=== PATIENT | male | born 1995 | race Two or more races ===

== ENCOUNTER 2018-02-17 16:29 | Emergency (ER) | payer SELFPAY ==
[2018-02-17] MEDS ORDERED: DIPHENHYDRAMINE HCL 50 MG/ML VIAL IV ONE (16:41)
[2018-02-17] MEDS ORDERED: METOCLOPRAMIDE HCL INJ/PF 10 MG/2 ML SDV IV ONE (16:41)
[2018-02-17] MEDS ORDERED: NORMAL SALINE 1000 ML 1,000 ML IV ONE (16:41)
--- NOTE | 2018-02-17 16:43 | ER Document Report ---
ED Medical Screen (RME) - General Chief Complaint: Headache Stated Complaint: HEADACHE Time Seen by Provider: 02/17/18 16:40 Notes: RME DISCLOSURE I have seen this patient as part of a Rapid Medical Evaluation and, if applicable, placed any initially appropriate orders. The patient will be seen and fully evaluated, including a full history and physical exam, by a provider ( in Main ED or Fast Track) when a room becomes available. 22-year-old male here with complaints of headache to the top of his head ongoing for the past 2 days. States that the headache started gradually and has been intermittent since then. Worse with moving his head but not worse with light and sound. No neck pain fevers nausea vomiting. Reports feeling very weak and dizzy with the headache. No prior history of headaches. Of note , he went to the clinic this afternoon and they checked his blood sugar and he was told it was normal. TRAVEL OUTSIDE OF THE [place] IN LAST 30 DAYS: No - Related Data Allergies/Adverse Reactions: No Known Allergies Allergy (Unverified 02/17/18 16:33) Physical Exam - Vital signs Vitals: Temp Pulse Resp BP Pulse Ox 97.5 F 95 16 145/72 H 100 02/17/18 16:33 02/17/18 16:33 02/17/18 16:33 02/17/18 16:33 02/17/18 16:33 Course - Vital Signs Vital signs: Temp Pulse Resp BP Pulse Ox 97.5 F 95 16 145/72 H 100 02/17/18 16:33 02/17/18 16:33 02/17/18 16:33 02/17/18 16:33 02/17/18 16:33
[2018-02-17 17:33] LABS: ABSOLUTE MONOCYTES (AUTO) 0.4 10^3/uL (0.1-1.4); ABSOLUTE NEUT (AUTO) 5.3 10^3/uL (1.7-8.2); BASOPHILS % (AUTO) 0.3 % (0-2); EOSINOPHILS % (AUTO) 0.1 % (0-6); HEMATOCRIT 44.7 % (37.9-51.0); HEMOGLOBIN 15.2 g/dL (13.5-17.0); LYMPHOCYTES % (AUTO) 15.1 % (13-45); MEAN CORPUSCULAR HEMOGLOBIN 30.5 pg (27.0-33.4); MEAN CORPUSCULAR VOLUME 90 fl (80-97); MONOCYTES % (AUTO) 6.3 % (3-13); PLATELET COUNT 164 10^3/uL (150-450); RED BLOOD COUNT 4.98 10^6/uL (4.35-5.55); RED CELL DISTRIBUTION WIDTH 12.3 % (11.5-14.0); SEGMENTED NEUTROPHILS % (AUTO) 78.2 % (42-78); TOTAL CELLS COUNTED % (AUTO) 100 %; WHITE BLOOD COUNT 6.8 10^3/uL (4.0-10.5)
[2018-02-17] MEDS ORDERED: KETOROLAC TROMETHAMINE 60 MG/2 ML SDV IV ONE (17:33)
--- NOTE | 2018-02-17 17:34 | ER Document Report ---
ED General - General Mode of Arrival: Ambulatory Information source: Patient TRAVEL OUTSIDE OF THE [place] IN LAST 30 DAYS: No <ERNIE HOFF - Last Filed: 02/17/18 19:07> <DIONY MALONEY - Last Filed: 02/17/18 23:20> - General Chief Complaint: Headache Stated Complaint: HEADACHE Time Seen by Provider: 02/17/18 16:40 Notes: Patient is a 22-year-old male presenting to the emergency department complaining of multiple symptoms including headache, weakness, lightheadedness, and shakiness onset 2 days ago. Patient states that 2 days ago he was laying upside down, texting and he felt like all the blood rushed to his head. He states that his headache has been intermittent until this morning when it became constant. He states the pain is at the top of his head that radiates unto the sides of his head when he turns from side to side. Patient states he brought Aspirin today but it did not help alleviate his symptoms. Patient also states that every time he stands up he feels lightheaded stating he feels like he is going to have a syncopal episode. Patient denies numbness, tingling sensations, blurry vision, difficulty swallowing, neck pain, chest pain, nausea , vomiting, trouble breathing, or fevers. (ERNIE HOFF) - Related Data Allergies/Adverse Reactions: No Known Allergies Allergy (Unverified 02/17/18 16:33) Past Medical History - General Information source: Patient - Social History Smoking Status: Never Smoker Chew tobacco use (# tins/day): No Frequency of alcohol use: None Drug Abuse: None Patient has suicidal ideation: No Patient has homicidal ideation: No <ERNIE HOFF - Last Filed: 02/17/18 19:07> - Social History Family History: None <DIONY MALONEY - Last Filed: 02/17/18 23:20> Review of Systems - Review of Systems Constitutional: No symptoms reported EENT: No symptoms reported Cardiovascular: See HPI, Dizziness, Lightheaded Respiratory: No symptoms reported Gastrointestinal: No symptoms reported Genitourinary: No symptoms reported Male Genitourinary: No symptoms reported Musculoskeletal: No symptoms reported Skin: No symptoms reported Hematologic/Lymphatic: No symptoms reported Neurological/Psychological: No symptoms reported -: Yes All other systems reviewed and negative <ERNIE HOFF - Last Filed: 02/17/18 19:07> Physical Exam <ERNIE HOFF - Last Filed: 02/17/18 19:07> <DIONY MALONEY - Last Filed: 02/17/18 23:20> - Vital signs Vitals: Temp Pulse Resp BP Pulse Ox 97.5 F 97 16 145/72 H 100 02/17/18 16:32 02/17/18 16:32 02/17/18 16:32 02/17/18 16:32 02/17/18 16:32 - Notes Notes: GENERAL: Alert, interacts well. No acute distress. HEAD: Normocephalic, atraumatic. EYES: Pupils equal, round, and reactive to light. Extraocular movements intact. ENT: Oral mucosa moist, tongue midline. Nares patent, no nasal septal hematoma, TM's intacts. NECK: Full range of motion. Supple. Trachea midline. LUNGS: Clear to auscultation bilaterally, no wheezes, rales, or rhonchi. No respiratory distress. HEART: Regular rate and rhythm. No murmurs, gallops, or rubs. ABDOMEN: Soft, non-tender. Non-distended. Bowel sounds present in all 4 quadrants. EXTREMITIES: Moves all 4 extremities spontaneously. No edema, radial and dorsalis pedis pulses 2/4 bilaterally. No cyanosis. NEUROLOGICAL: Alert and oriented x3. Normal speech. Cranial nerves II through XII grossly intact. Biceps and patellar DTRs 2+ bilaterally. Finger to nose testing intact. Sensations intact. Sinuses tender to percussion. PSYCH: Normal affect, normal mood. SKIN: Warm, dry, normal turgor. No rashes or lesions noted. (ERNIE HOFF) Course - Laboratory Result Diagrams: 02/17/18 17:03 02/17/18 17:03 <ERNIE HOFF - Last Filed: 02/17/18 19:07> - Laboratory Result Diagrams: 02/17/18 17:03 02/17/18 17:03 <DIONY MALONEY - Last Filed: 02/17/18 23:20> - Re-evaluation Re-evalutation: 02/17/18 19:21 CBC unremarkable, CMP has slight low potassium at 3.4 otherwise unremarkable, CT scan of the head does not show any acute process. Patient is neurologically intact, and headache has been going on for 2 days and waxes and wanes, not consistent with subarachnoid hemorrhage or meningitis. Patient has been treated with Toradol, Compazine and Benadryl. Patient will be discharged to home. Patient's headache is improved, he will follow-up with neurology as an outpatient if he continues to have daily headaches. (DIONY MALONEY) - Vital Signs Vital signs: Temp Pulse Resp BP Pulse Ox 99.2 F 73 16 125/65 100 02/17/18 20:03 02/17/18 20:03 02/17/18 16:33 02/17/18 20:03 02/17/18 20:03 - Laboratory Laboratory results interpreted by me: 02/17/18 02/17/18 17:03 17:03 Seg Neutrophils % 78.2 H Potassium 3.4 L BUN 4 L Glucose 118 H Discharge <ERNIE HOFF - Last Filed: 02/17/18 19:07> <DIONY MALONEY - Last Filed: 02/17/18 23:20> - Discharge Clinical Impression: Elevated blood pressure reading Headache Qualifiers: Headache type: unspecified Headache chronicity pattern: acute headache Intractability: not intractable Qualified Code(s): R51 - Headache Condition: Stable Disposition: HOME, SELF-CARE Additional Instructions: Today we did not see any signs of infection, stroke or bleeding in your brain. You should slowly decrease the amount of caffeine that you drink and stop using energy shots. We are going to discharge you to home. If you continue to have regular headaches you should follow-up with a neurologist. Referrals: VALENTE LIRA MD [NO LOCAL MD] - Follow up in 1 week Scribe Attestation: 02/17/18 23:20 I personally performed the services described in the documentation, reviewed and edited the documentation which was dictated to the scribe in my presence, and it accurately records my words and actions. (DIONY MALONEY) Scribe Documentation - Scribe Written by Marco:: Marco Smiley, 02/17/2018 18:25 acting as scribe for :: Brianda <ERNIE HOFF - Last Filed: 02/17/18 19:07>
[2018-02-17 17:48] LABS: ANION GAP 11 (5-19); BLOOD UREA NITROGEN 4 mg/dL (7-20); CALCIUM 10.2 mg/dL (8.4-10.2); CARBON DIOXIDE 27 mmol/L (22-30); CHLORIDE 105 mmol/L (98-107); GLUCOSE 118 mg/dL (75-110); PHOSPHORUS 2.7 mg/dL (2.5-4.5); POTASSIUM 3.4 mmol/L (3.6-5.0); SODIUM 143.3 mmol/L (137-145)
--- NOTE | 2018-02-17 18:27 | RADIOLOGY REPORT (SQ) ---
EXAM DESCRIPTION: CT HEAD WITHOUT COMPLETED DATE/TIME: 02/17/2018 6:18 pm REASON FOR STUDY: SCHERER feeling weak dizzy; bleed mass etc COMPARISON: None. TECHNIQUE: Axial images acquired through the brain without intravenous contrast. Images reviewed wi th bone, brain and subdural windows. Additional sagittal and coronal reconstructions were generated. Images stored on PACS. All CT scanners at this facility use dose modulation, iterative reconstruction, and/or weight based d osing when appropriate to reduce radiation dose to as low as reasonably achievable (ALARA). [facility]: Dose Right [facility]: CareDose [facility]: Dose Right [facility]: Teradose 4D [facility]: Station X RADIATION DOSE: CT Rad equipment meets quality standard of care and radiation dose reduction techniq ues were employed. CTDIvol: 53.2 mGy. DLP: 1017 mGy-cm. mGy. LIMITATIONS: None. FINDINGS: VENTRICLES: Normal size and contour. CEREBRUM: No masses. No hemorrhage. No midline shift. No evidence for acute infarction. Normal gra y/white matter differentiation. No areas of low density in the white matter. CEREBELLUM: No masses. No hemorrhage. No alteration of density. No evidence for acute infarction. EXTRAAXIAL SPACES: No fluid collections. No masses. ORBITS AND GLOBE: No intra- or extraconal masses. Normal contour of globe without masses. CALVARIUM: No fracture. PARANASAL SINUSES: No fluid or mucosal thickening. SOFT TISSUES: No mass or hematoma. OTHER: No other significant finding. IMPRESSION: NORMAL BRAIN CT WITHOUT CONTRAST. EVIDENCE OF ACUTE STROKE: NO. COMMENT: Quality ID # [id number]: Final reports with documentation of one or more dose reduction techniques (e.g., Automated exposure control, adjustment of the mA and/or kV according to patient size, use of iterative reconstruction technique) TECHNICAL DOCUMENTATION: JOB ID: [id number] [employer]- All Rights Reserved Reading location - IP/workstation name: [email or web address]
[2018-02-17 20:07] VITALS: BP 125/65
== END 2018-02-17 20:10 | disposition home or self-care (01) ==
LOC: ER 16:29
DX: R51 Headache (principal); R03.0 Elevated blood-pressure reading, without diagnosis of hypertension; R53.1 Weakness; R42 Dizziness and giddiness
CPT/HCPCS: 99284; 96361; 96374; 96375; 36415; 83735; 84100; 85025; 80048; 70450; J1200; J1885; J2765; J7030